=== PATIENT | male | born 1970 | race Caucasian/White ===

== ENCOUNTER 2022-05-15 19:37 | Emergency (ER) | payer MEDICAID ==
[~2022-05-15] VITALS: Ht 162.6 cm; Wt 69.0 kg
[2022-05-15 23:20] LABS: BASOPHILS % 1.4 % (0.0-2.0); EOSINOPHILS % 0.7 % (0.0-5.0); HEMATOCRIT. 39.7 % (42.0-52.0); HEMOGLOBIN. 13.6 g/dL (14.0-18.0); LYMPHOCYTES % 38.4 % (20.0-50.0); MEAN CORPUSCULAR HEMOGLOBIN 31.7 pg (28.0-32.0); MEAN CORPUSCULAR VOLUME 92.6 fL (80.0-94.0); MEAN PLATELET VOLUME 6.2 fl (7.4-10.4); MONOCYTES % 9.1 % (2.0-8.0); NEUTROPHILS % 50.4 % (40.0-76.0); PLATELET 106 x1000/uL (130-400); RED BLOOD CELL COUNT 4.29 mill/uL (4.7-6.1); RED CELL DISTRIBUTION WIDTH 14.7 % (11.6-14.6)
[2022-05-15 23:21] LABS: CHLORIDE 105 mEq/L (98-107)
[2022-05-16 00:08] LABS: ETHANOL BLOOD 334 mg/dL
[2022-05-16 04:54] VITALS: BP 126/84
== END 2022-05-16 04:55 | disposition home or self-care (01) ==
LOC: ER 19:37
DX: S09.8XXA Other specified injuries of head, initial encounter (principal); T51.0X1A Toxic effect of ethanol, accidental (unintentional), initial encounter; Y92.89 Other specified places as the place of occurrence of the external cause; X58.XXXA Exposure to other specified factors, initial encounter; Y93.89 Activity, other specified; Y99.8 Other external cause status; G93.40 Encephalopathy, unspecified
CPT/HCPCS: 36415; 80048; 80320; 85025; 99283; G0480